=== PATIENT | male | born 1955 | race Caucasian/White ===

== ENCOUNTER 2025-01-02 06:58 | Day surgery (SDC) | payer MEDICARE, OTHER ==
[2025-01-02] MEDS ORDERED: Ondansetron 4 MG/2 ML SDV IV ONE (06:59)
[2025-01-02] MEDS ORDERED: Sodium Chloride 0.9% 10 ML Syringe FLUSH PRN (07:00)
[2025-01-02] MEDS: Lactated Ringers 1,000 ML IV SCH (07:25)
[2025-01-02] MEDS ORDERED: Midazolam 1 MG/ML 2 ML SDV ONE (08:05)
[2025-01-02] MEDS ORDERED: Propofol 200 MG/20 ML SDV ONE (08:06)
== END 2025-01-02 10:18 | disposition home or self-care (01) ==
LOC: KA.SDS 06:58
PROVIDERS: ATTEND Family Medicine
DX: Z12.11 Encounter for screening for malignant neoplasm of colon (principal); D12.6 Benign neoplasm of colon, unspecified; D12.8 Benign neoplasm of rectum; K57.30 Diverticulosis of large intestine without perforation or abscess without bleeding; K64.8 Other hemorrhoids; E03.4 Atrophy of thyroid (acquired); E78.00 Pure hypercholesterolemia, unspecified; Z79.890 Hormone replacement therapy; Z79.899 Other long term (current) drug therapy
CPT/HCPCS: 00811; J2250; J2405; J2704; J7120